=== PATIENT | female | born 1980 | race Native Hawaiian/Other Pacific Islander ===

== ENCOUNTER 2020-12-14 10:16 | Observation (INO) | payer BC ==
[~2020-12-14] VITALS: Ht 162.6 cm; Wt 84.5 kg
[2020-12-14 11:34] VITALS: BP 151/83; TEMP 98.4; Ht 162.6 cm; Wt 84.5 kg
[2020-12-14 12:14] LABS: PLATELET COUNT 273 K/uL (152-353)
[2020-12-14 12:42] LABS: POTASSIUM 3.5 mmol/L (3.6-5.2)
[2020-12-14 16:00] VITALS: BP 121/78; TEMP 98.8
[2020-12-14] MEDS ORDERED: CELEXA40 MG PO (17:47)
[2020-12-14] MEDS ORDERED: CLOR3.75 PO (17:47)
[2020-12-14] MEDS ORDERED: CYCL10TA35 PO (17:48)
[2020-12-14] MEDS ORDERED: DOCU100C10 PO (17:48)
[2020-12-14] MEDS ORDERED: TRAMADOL HYDROC50 MG PO (17:49)
[2020-12-14] MEDS ORDERED: IMITREX6 MG/0.5 M SC (17:51)
[2020-12-14] MEDS ORDERED: NEURONTIN 100M100 MG PO (17:52)
[2020-12-14 20:00] VITALS: BP 115/70; TEMP 98.5
[2020-12-15 00:05] VITALS: BP 125/87; TEMP 98.3
[2020-12-15 04:01] VITALS: BP 110/75; TEMP 98.4
[2020-12-15 05:10] LABS: PLATELET COUNT 260 K/uL (152-353)
[2020-12-15 05:28] LABS: POTASSIUM 3.9 mmol/L (3.6-5.2)
[2020-12-15 08:00] VITALS: BP 123/75; TEMP 98.2
[2020-12-15 12:00] VITALS: BP 104/64; TEMP 98.2
[2020-12-15 16:00] VITALS: BP 110/71; TEMP 98.7
== END 2020-12-15 17:30 | disposition home or self-care (01) ==
LOC: MED/SURG 10:16
PROVIDERS: ADMIT Internal Medicine Endocrinology, Diabetes & Metabolism; ATTEND Internal Medicine Endocrinology, Diabetes & Metabolism
DX: U07.1 COVID-19 (principal); J96.01 Acute respiratory failure with hypoxia; G89.4 Chronic pain syndrome; G43.809 Other migraine, not intractable, without status migrainosus; F41.8 Other specified anxiety disorders
CPT/HCPCS: 36415; 80053; 81000; 82728; 85027; 85379; 94760; 99220; G0378; G0379; J0456; J0696; J1650; J1885; J2270; J2550

== ENCOUNTER 2021-01-18 22:50 | Emergency (ER) | payer BC ==
[~2021-01-18] VITALS: Ht 162.6 cm; Wt 86.2 kg
[~2021-01-18 22:50] MED LIST: CELEXA40 MG PO; CLOR3.75 PO; CYCL10TA35 PO; DOCU100C10 PO; IMITREX6 MG/0.5 M SC; NEURONTIN 100M100 MG PO; TRAMADOL HYDROC50 MG PO
[2021-01-19 00:22] LABS: PLATELET COUNT 301 K/uL (152-353)
[2021-01-19 00:25] LABS: POTASSIUM 3.6 mmol/L (3.6-5.2)
[2021-01-19 01:15] VITALS: BP 120/70
== END 2021-01-19 01:15 | disposition home or self-care (01) ==
LOC: ED 22:50
PROVIDERS: Emergency Medicine
DX: R10.84 Generalized abdominal pain (principal); R10.2 Pelvic and perineal pain; R30.0 Dysuria; R31.9 Hematuria, unspecified; Z03.818 Encounter for observation for suspected exposure to other biological agents ruled out
CPT/HCPCS: 36415; 80053; 80307; 81000; 82150; 83690; 85027; 87635; 96360; 96375; 99284; J2405; U0003